=== PATIENT | female | born 1975 | race Caucasian/White ===

== ENCOUNTER 2018-09-23 05:27 | Inpatient (IN) | payer BC ==
[2018-09-23] VITALS (61 sets, daily range): BP systolic 73–117; BP diastolic 43–83
[~2018-09-23] VITALS: Ht 195.6 cm; Wt 76.4 kg
[~2018-09-23 05:27] MED LIST: CHOL400T PO; IBUP-1649 PO
[2018-09-23] MEDS ORDERED: GELATIN SPONGE,ABSORBABLE 12-7MM SPONGE ONE ×2 (06:43→06:48)
[2018-09-23] MEDS ORDERED: THROMBIN (BOVINE) 5000 UNITS/VIAL TOP ONE (06:43)
[2018-09-23] MEDS ORDERED: MANNITOL 20% 500 ML IV ONE (06:43)
[2018-09-23] MEDS ORDERED: LIDOCAINE HCL/EPINEPHRINE 1%-EPI 1:100,000 20 ML VIAL ONE (06:44)
[2018-09-23] MEDS ORDERED: BACITRACIN 50,000 UNITS/VIAL ONE (06:44)
[2018-09-23 06:47] LABS: UCG SCREEN NEGATIVE
[2018-09-23] MEDS ORDERED: CLINDAMYCIN 900 MG in DEXTROSE 5% WATER 50 ML IV STA (07:04)
[2018-09-23] MEDS ORDERED: NEOSTIGMINE METHYLSULFATE 1MG/ML 10 ML VIAL ONE (07:13)
[2018-09-23] MEDS ORDERED: GLYCOPYRROLATE 0.2 MG/ML 2ML VIAL ONE ×2 (07:13→09:11)
[2018-09-23] MEDS ORDERED: ROCURONIUM BROMIDE 10MG/ML VIAL 5ML IV ONE (07:13)
[2018-09-23] MEDS ORDERED: PROPOFOL 200MG/20ML VIAL IV ONE (07:13)
[2018-09-23] MEDS ORDERED: FENTANYL CITRATE/PF 50MCG/ML 2ML VIAL ONE ×2 (07:13→07:56)
[2018-09-23] MEDS ORDERED: MIDAZOLAM HCL 2 MG/2 ML VIAL ONE (07:13)
[2018-09-23] MEDS ORDERED: DEXAMETHASONE 4MG/ML 1ML VIAL ONE (07:15)
[2018-09-23] MEDS ORDERED: LEVETIRACETAM 500 MG in SODIUM CHLORIDE 0.9% 100 ML IV ONE (07:15)
[2018-09-23] MEDS ORDERED: ONDANSETRON HCL 4MG/2ML INJ ONE (07:16)
[2018-09-23] MEDS ORDERED: POVIDONE-IODINE OINT 28.4GM TOP ONE (07:33)
[2018-09-23] MEDS ORDERED: MEPERIDINE HCL/PF 25MG/ML CPJ IV PRN (08:15)
[2018-09-23] MEDS ORDERED: ONDANSETRON HCL 4MG/2ML INJ IV PRN (08:15)
[2018-09-23] MEDS ORDERED: HYDROMORPHONE HCL/PF 2MG/ML CPJ IV PRN (08:15)
[2018-09-23] MEDS ORDERED: LABETALOL 5MG/ML SYR 20 MG/4 ML SYRINGE IV PRN (08:15)
[2018-09-23] MEDS ORDERED: DEXT 5%/LACTATED RINGERS 1,000 ML IV SCH (09:00)
[2018-09-23] MEDS ORDERED: NICARDIPINE 50 MG in SODIUM CHLORIDE 0.9% 230 ML IV PRN (09:00)
[2018-09-23] MEDS ORDERED: NITROPRUSSIDE 50 MG in SODIUM CHLORIDE 0.9% 248 ML IV PRN (09:30)
[2018-09-23] MEDS ORDERED: SODIUM CHLORIDE 0.9% 500 ML IV SCH (10:00)
[2018-09-23] MEDS ORDERED: LEVETIRACETAM 500 MG in SODIUM CHLORIDE 0.9% 100 ML IV NR (11:30)
[2018-09-23] MEDS: PANTOPRAZOLE SODIUM 40 MG/VIAL IV SCH (11:41)
[2018-09-23] MEDS: MORPHINE SULFATE 4 MG/ML CPJ (NOT FOR IM USE) IV PRN ×4 (11:43→23:41)
[2018-09-23 12:54] LABS: HEMATOCRIT. 32.2 % (36.0-48.0); HEMOGLOBIN. 11.1 g/dL (12.0-16.0); MEAN CORPUSCULAR HEMOGLOBIN 32.3 pg (28.0-32.0); MEAN CORPUSCULAR VOLUME 93.7 fL (81.0-99.0); MEAN PLATELET VOLUME 11.3 fl (7.4-10.4); PLATELET 129 x1000/uL (130-400); RED BLOOD CELL COUNT 3.44 mill/uL (4.2-5.4); RED CELL DISTRIBUTION WIDTH 12.9 % (11.6-14.6)
[2018-09-23 13:19] LABS: CHLORIDE 110 mEq/L (98-107)
[2018-09-23] MEDS: ONDANSETRON HCL 4MG/2ML INJ IV PRN ×2 (14:11→19:52)
[2018-09-23] MEDS: CLINDAMYCIN 600 MG in DEXTROSE 5% WATER 50 ML IV SCH ×2 (14:31→22:39)
[2018-09-23] MEDS ORDERED: ACETAMINOPHEN 325MG TABLET PO NR (16:00)
[2018-09-23 16:31] LABS: PLATELET ESTIMATE SLIGHTLY DECREASED
[2018-09-23] MEDS ORDERED: METOCLOPRAMIDE HCL 10MG/2ML VIAL IV NR (16:45)
[2018-09-23] MEDS: DEXT 5%/0.45% NACL 1000ML 1,000 ML IV SCH ×2 (19:04→22:39)
[2018-09-23] MEDS: LEVETIRACETAM 500 MG in SODIUM CHLORIDE 0.9% 100 ML IV SCH (20:34)
[2018-09-24] VITALS (54 sets, daily range): BP systolic 83–135; BP diastolic 41–79
[2018-09-24] MEDS: ONDANSETRON HCL 4MG/2ML INJ IV PRN ×4 (01:26→21:55)
[2018-09-24] MEDS: MORPHINE SULFATE 4 MG/ML CPJ (NOT FOR IM USE) IV PRN ×2 (03:44→05:59)
[2018-09-24] MEDS: CLINDAMYCIN 600 MG in DEXTROSE 5% WATER 50 ML IV SCH ×2 (05:59→14:22)
[2018-09-24] MEDS ORDERED: HYDROMORPHONE HCL/PF 2MG/ML CPJ IM PRN (06:15)
[2018-09-24] MEDS: HYDROMORPHONE HCL/PF 2MG/ML CPJ IV PRN ×4 (06:42→21:54)
[2018-09-24] MEDS: DEXT 5%/0.45% NACL 1000ML 1,000 ML IV SCH (06:45)
[2018-09-24] MEDS: PANTOPRAZOLE SODIUM 40 MG/VIAL IV SCH (08:34)
[2018-09-24] MEDS: LEVETIRACETAM 500 MG in SODIUM CHLORIDE 0.9% 100 ML IV SCH ×2 (09:18→20:15)
[2018-09-24] MEDS ORDERED: ACETAMINOPHEN 325MG TABLET PO PRN (14:15)
[2018-09-24] MEDS: PROCHLORPERAZINE 10MG/2ML VIAL IM PRN (15:41)
[2018-09-24 16:34] LABS: HEMATOCRIT. 31.5 % (36.0-48.0); HEMOGLOBIN. 10.8 g/dL (12.0-16.0); LYMPHOCYTES % 10.5 % (20.0-50.0); MEAN CORPUSCULAR HEMOGLOBIN 31.8 pg (28.0-32.0); MEAN CORPUSCULAR VOLUME 92.8 fL (81.0-99.0); MEAN PLATELET VOLUME 10.6 fl (7.4-10.4); MONOCYTES % 6.8 % (2.0-8.0); NEUTROPHILS % 82.7 % (40.0-76.0); PLATELET 162 x1000/uL (130-400); RED BLOOD CELL COUNT 3.39 mill/uL (4.2-5.4)
[2018-09-24 16:42] LABS: CHLORIDE 105 mEq/L (98-107)
[2018-09-25] VITALS (34 sets, daily range): BP systolic 90–129; BP diastolic 51–84
[2018-09-25] MEDS: ONDANSETRON HCL 4MG/2ML INJ IV PRN ×4 (02:05→23:59)
[2018-09-25] MEDS: HYDROMORPHONE HCL/PF 2MG/ML CPJ IV PRN ×4 (07:41→21:09)
[2018-09-25] MEDS: PANTOPRAZOLE SODIUM 40 MG/VIAL IV SCH (07:41)
[2018-09-25] MEDS: DEXAMETHASONE 4MG/ML 1ML VIAL IV SCH ×3 (12:17→23:58)
[2018-09-25] MEDS: DOCUSATE SODIUM 100MG CAPSULE PO SCH (17:21)
[2018-09-25] MEDS: PROCHLORPERAZINE 10MG/2ML VIAL IM PRN (21:08)
[2018-09-26] VITALS (21 sets, daily range): BP systolic 100–150; BP diastolic 59–82
[2018-09-26] MEDS: PROCHLORPERAZINE 10MG/2ML VIAL IM PRN ×3 (04:08→19:00)
[2018-09-26] MEDS: HYDROMORPHONE HCL/PF 2MG/ML CPJ IV PRN ×6 (04:08→22:53)
[2018-09-26] MEDS: DEXAMETHASONE 4MG/ML 1ML VIAL IV SCH ×3 (05:39→18:52)
[2018-09-26] MEDS: ONDANSETRON HCL 4MG/2ML INJ IV PRN ×3 (08:04→22:52)
[2018-09-26] MEDS: DOCUSATE SODIUM 100MG CAPSULE PO SCH ×2 (09:51→17:00)
[2018-09-26] MEDS: PANTOPRAZOLE SODIUM 40 MG/VIAL IV SCH (09:51)
[2018-09-27] VITALS (10 sets, daily range): BP systolic 110–124; BP diastolic 50–86
[2018-09-27] MEDS: DEXAMETHASONE 4MG/ML 1ML VIAL IV SCH ×2 (00:12→05:52)
[2018-09-27] MEDS: HYDROMORPHONE HCL/PF 2MG/ML CPJ IV PRN ×2 (02:08→08:02)
[2018-09-27] MEDS: PROCHLORPERAZINE 10MG/2ML VIAL IM PRN (02:08)
[2018-09-27] MEDS: ONDANSETRON HCL 4MG/2ML INJ IV PRN (08:02)
[2018-09-27] MEDS: DOCUSATE SODIUM 100MG CAPSULE PO SCH (10:02)
[2018-09-27] MEDS: PANTOPRAZOLE SODIUM 40 MG/VIAL IV SCH (10:02)
[2018-09-27] MEDS ORDERED: HYDR-4001 MT (12:19)
[2018-09-27] MEDS ORDERED: ONDA4TAB5 PO (12:19)
== END 2018-09-27 13:00 | disposition home or self-care (01) | DRG 26 ==
LOC: OR 05:27 → MICUNO 05:28
PROVIDERS: ADMIT Internal Medicine Critical Care Medicine; ATTEND Internal Medicine Critical Care Medicine
PROC: 0KB00ZZ Excision of Head Muscle, Open Approach (ICD-10-PCS; 2018-09-23)
PROC: 009600Z Drainage of Cerebral Ventricle with Drainage Device, Open Approach (ICD-10-PCS; 2018-09-23)
PROC: 4A103BD Monitoring of Intracranial Pressure, Percutaneous Approach (ICD-10-PCS; 2018-09-23)
PROC: 00U207Z Supplement Dura Mater with Autologous Tissue Substitute, Open Approach (ICD-10-PCS; principal; 2018-09-23 07:00)
DX: G93.0 Cerebral cysts (principal); G93.40 Encephalopathy, unspecified; I95.9 Hypotension, unspecified; D72.829 Elevated white blood cell count, unspecified; T38.0X5A Adverse effect of glucocorticoids and synthetic analogues, initial encounter; Y92.238 Other place in hospital as the place of occurrence of the external cause; Z98.891 History of uterine scar from previous surgery
CPT/HCPCS: 36415; 70551; 71045; 80048; 81025; 86850; 86900; 97162; 97166; C1713; C1725; C9113; J0780; J1100; J1170; J1953; J2250; J2270; J2405; J2704; J2710; J2765; J3010; J3490; J7050; J7060; J7120